=== PATIENT | female | born 1995 | race Caucasian/White ===

== ENCOUNTER 2017-04-30 13:49 | Emergency (ER) | payer MEDICAID, OTHER ==
[~2017-04-30] VITALS: Ht 152.4 cm; Wt 43.5 kg
[2017-04-30] MEDS ORDERED: NS IV 1000 ML 1,000 ML IV ONE (14:05)
[2017-04-30 14:14] LABS: BASOPHILS % (AUTO) 0 % (0-10); EOSINOPHILS # (AUTO) 0.1 10^3/uL (0.0-0.3); EOSINOPHILS % (AUTO) 1 % (0-10); LYMPHOCYTES # (AUTO) 2.9 X 10^3 (1.0-4.0); LYMPHOCYTES % (AUTO) 33 % (12-44); MEAN CORPUSCULAR HEMOGLOBIN 34 PG (25-34); MEAN CORPUSCULAR HGB CONC 35 G/DL (32-36); MEAN CORPUSCULAR VOLUME 97 FL (80-99); MEAN PLATELET VOLUME 10.9 FL (7.4-10.4); MONOCYTES # (AUTO) 0.6 X 10^3 (0.0-1.0); MONOCYTES % (AUTO) 7 % (0-12); NEUTROPHILS # (AUTO) 5.3 X 10^3 (1.8-7.8); NEUTROPHILS % (AUTO) 59 % (42-75); PLATELET COUNT 234 10^3/uL (130-400); RED BLOOD COUNT 4.42 10^6/uL (4.35-5.85)
[2017-04-30 14:26] LABS: ACETAMINOPHEN < 10 UG/ML (10-30); ALANINE AMINOTRANSFERASE 20 U/L (0-55); ALBUMIN 4.9 GM/DL (3.2-4.5); ANION GAP 12 MMOL/L (5-14); ASPARTATE AMINO TRANSFERASE 18 U/L (5-34); BILIRUBIN,TOTAL 2.8 MG/DL (0.1-1.0); BLOOD UREA NITROGEN 10 MG/DL (7-18); BUN/CREATININE RATIO 12; CALCIUM 9.6 MG/DL (8.5-10.1); CARBON DIOXIDE 25 MMOL/L (21-32); CHLORIDE 103 MMOL/L (98-107); CREATINE KINASE 85 U/L (29-168); CREATININE SERUM 0.81 MG/DL (0.60-1.30); GFR ESTIMATED > 60; GLUCOSE 95 MG/DL (70-105); MAGNESIUM 2.3 MG/DL (1.8-2.4); POTASSIUM 3.4 MMOL/L (3.6-5.0); SALICYLATE < 5.0 MG/DL (5.0-20.0); SODIUM 140 MMOL/L (135-145); TOTAL PROTEIN 7.5 GM/DL (6.4-8.2); hs C REACTIVE PROTEIN 0.02 MG/DL (0.00-0.50)
--- NOTE | 2017-04-30 14:32 | ED General ---
General Chief Complaint: General Problems/Pain Stated Complaint: SEIZURES Nursing Triage Note: PT PRESENTS TO ED FROM [facility], PT SHAKING UNCONTROLLABLY ALERT AND ORIENTED. PT APPEARS TO HAVE PERIODS OF UNRESPONSIVNESS BUT IMMEDIATELY RESPONDS TO VERBAL STIMULI. PT REPORTS SHE WAS SEEN AT [facility] FOR THE SAME SYMPTOMS AND TREATED FOR ANXIETY. Nursing Sepsis Screen: No Definite Risk Source of Information: Patient Exam Limitations: No Limitations History of Present Illness Time Seen by Provider: 13:58 Initial Comments Here by way of private vehicle with friends. They brought her here from [place] where she was apparently seen at [facility] ER. They left there and came here with same complaint of shaking and reporting that she is having a seizure. The shaking episodes apparently started last night and have been intermittently occurring since then and continue to intermittently occurring now. Patient is awake during this period but shaking everywhere. She reports she is is not happy because she was told at [facility] that she was having anxiety and that was what the problem was. Patient states she doesn't know what 's going on but does not believe it is that. She has not seen a neurologist for this. She reports that she's had tremors and those are getting worse. She has had workup for her GI problems including upper endoscopy and evaluation of her pancreas. She's had lower endoscopy to evaluate for her Crohn's but does report that is better now. Patient admits that she previously was prescribed Adderall and did take a half of bilateral on Saturday because she was very tired but hasn't taken any since. Timing/Duration: 4-6 Hours Severity: Moderate Associated Systoms: No Chest Pain, No Cough, No Fever/Chills, No Nausea/ Vomiting, Seizure (shaking episodes), No Shortness of Air Allergies and Home Medications Allergies Coded Allergies: codeine (Verified Allergy, Unknown, 04/30/17) Constitutional: see HPI, No chills, No fever Respiratory: no symptoms reported Cardiovascular: no symptoms reported, No chest pain, No edema Gastrointestinal: No abdominal pain, No nausea, No vomiting Musculoskeletal: see HPI Skin: no symptoms reported Psychiatric/Neurological: See HPI, Seizure, Tremors, Other (reports unintentional 40 pound weight loss over the last year) All Other Systems Reviewed Negative Unless Noted: Yes Past Ijtefzr-Jmwgen-Cahyxd Hx Patient Social History Alcohol Use: Occasionally Uses Recreational Drug Use: Yes Drug of Choice: MARIJUANA Smoking Status: Current Someday Smoker Type Used: Cigarettes Recent Foreign Travel: No Contact w/Someone Who Travel: No Recent Infectious Disease Expo: No Recent Hopitalizations: No Surgeries HX Surgeries: Yes Surgeries: Gallbladder, Orthopedic Respiratory Hx Respiratory Disorders: No Cardiovascular Hx Cardiac Disorders: No Neurological Hx Neurological Disorders: No Gastrointestinal Hx Gastrointestinal Disorders: Yes Gastrointestinal Disorders: Crohns Disease Psychosocial Hx Psychiatric Problems: Yes Behavioral Health Disorders: Anxiety Reviewed Nursing Assessment Reviewed/Agree w Nursing PMH: Yes Family Medical History Significant Family History: No Pertinent Family Hx Physical Exam Vital Signs Vital Sign - Last 12Hours 04/30/17 13:58 Temp 98.8 Pulse 73 Resp 18 B/P (MAP) 122/87 Pulse Ox 97 O2 Delivery Room Air Capillary Refill : Less Than 3 Seconds General Appearance: Anxious, Thin HEENT: TMs Normal, Pharynx Normal, Other (pinpoint pupils bilaterally) Neck: Full Range of Motion, Non Tender, Supple Respiratory: Chest Non Tender, Lungs Clear, Normal Breath Sounds Cardiovascular: Regular Rate, Rhythm, No Murmur Gastrointestinal: Non Tender, Soft Back: Normal Inspection, No CVA Tenderness, No Vertebral Tenderness Extremity: Normal Range of Motion, Non Tender Neurologic/Psychiatric: Alert, Oriented x3 Skin: Normal Color, Warm/Dry Progress/Results/Core Measures Results/Orders Lab Results Laboratory Tests Test 04/30/17 13:54 04/30/17 14:18 Range/Units White Blood Count 9.0 4.3-11.0 10^3/uL Red Blood Count 4.42 4.35-5.85 10^6/uL Hemoglobin 15.0 11.5-16.0 G/DL Hematocrit 43 35-52 % Mean Corpuscular Volume 97 80-99 FL Mean Corpuscular Hemoglobin 34 25-34 PG Mean Corpuscular Hemoglobin Concent 35 32-36 G/DL Red Cell Distribution Width 12.0 10.0-14.5 % Platelet Count 234 130-400 10^3/uL Mean Platelet Volume 10.9 H 7.4-10.4 FL Neutrophils (%) (Auto) 59 42-75 % Lymphocytes (%) (Auto) 33 12-44 % Monocytes (%) (Auto) 7 0-12 % Eosinophils (%) (Auto) 1 0-10 % Basophils (%) (Auto) 0 0-10 % Neutrophils # (Auto) 5.3 1.8-7.8 X 10^3 Lymphocytes # (Auto) 2.9 1.0-4.0 X 10^3 Monocytes # (Auto) 0.6 0.0-1.0 X 10^3 Eosinophils # (Auto) 0.1 0.0-0.3 10^3/uL Basophils # (Auto) 0.0 0.0-0.1 10^3/uL Sodium Level 140 135-145 MMOL/L Potassium Level 3.4 L 3.6-5.0 MMOL/L Chloride Level 103 98-107 MMOL/L Carbon Dioxide Level 25 21-32 MMOL/L Anion Gap 12 5-14 MMOL/L Blood Urea Nitrogen 10 7-18 MG/DL Creatinine 0.81 0.60-1.30 MG/DL Estimat Glomerular Filtration Rate > 60 BUN/Creatinine Ratio 12 Glucose Level 95 70-105 MG/DL Calcium Level 9.6 8.5-10.1 MG/DL Magnesium Level 2.3 1.8-2.4 MG/DL Total Bilirubin 2.8 H 0.1-1.0 MG/DL Aspartate Amino Transf (AST/SGOT) 18 5-34 U/L Alanine Aminotransferase (ALT/SGPT) 20 0-55 U/L Alkaline Phosphatase 85 40-136 U/L Total Creatine Kinase 85 29-168 U/L C-Reactive Protein High Sensitivity 0.02 0.00-0.50 MG/DL Total Protein 7.5 6.4-8.2 GM/DL Albumin 4.9 H 3.2-4.5 GM/DL Thyroid Stimulating Hormone (TSH) 0.78 0.35-4.94 UIU/ML Human Chorionic Gonadotropin, Quant < 5 <5 MIU/ML Salicylates Level < 5.0 L 5.0-20.0 MG/DL Acetaminophen Level < 10 L 10-30 UG/ML Urine Color YELLOW Urine Clarity CLEAR Urine pH 6.5 5-9 Urine Specific [place] 1.010 L 1.016-1.022 Urine Protein NEGATIVE NEGATIVE Urine Glucose (UA) NEGATIVE NEGATIVE Urine Ketones 2+ H NEGATIVE Urine Nitrite NEGATIVE NEGATIVE Urine Bilirubin NEGATIVE NEGATIVE Urine Urobilinogen NORMAL NORMAL MG/DL Urine Leukocyte Esterase NEGATIVE NEGATIVE Urine RBC (Auto) 3+ H NEGATIVE Urine RBC 2-5 H /HPF Urine WBC 2-5 /HPF Urine Squamous Epithelial Cells 10-25 H /HPF Urine Crystals NONE /LPF Urine Bacteria MODERATE H /HPF Urine Casts NONE /LPF Urine Mucus NEGATIVE /LPF Urine Culture Indicated NO Urine Opiates Screen POSITIVE H NEGATIVE Urine Oxycodone Screen NEGATIVE NEGATIVE Urine Methadone Screen NEGATIVE NEGATIVE Urine Propoxyphene Screen NEGATIVE NEGATIVE Urine Barbiturates Screen NEGATIVE NEGATIVE Ur Tricyclic Antidepressants Screen NEGATIVE NEGATIVE Urine Phencyclidine Screen NEGATIVE NEGATIVE Urine Amphetamines Screen NEGATIVE NEGATIVE Urine Methamphetamines Screen NEGATIVE NEGATIVE Urine Benzodiazepines Screen NEGATIVE NEGATIVE Urine Cocaine Screen NEGATIVE NEGATIVE Urine Cannabinoids Screen POSITIVE H NEGATIVE My Orders Orders - MANISH CANO MD Cbc With Automated Diff (04/30/17 14:05) Comprehensive Metabolic Panel (04/30/17 14:05) Creatine Kinase (04/30/17 14:05) Hs C Reactive Protein (04/30/17 14:05) Drug Screen Stat (Urine) (04/30/17 14:05) Hcg,Quantitative (04/30/17 14:05) Magnesium (04/30/17 14:05) Thyroid Stimulating Hormone (04/30/17 14:05) Ua Culture If Indicated (04/30/17 14:05) Ct Head Wo (04/30/17 14:05) Saline Lock/Iv-Start (04/30/17 14:05) Ns Iv 1000 Ml (Sodium Chloride 0.9%) (04/30/17 14:05) Acetaminophen (04/30/17 14:05) Salicylate (04/30/17 14:05) Medications Given in ED Current Medications Medications Dose Ordered Sig/Ulysses Route Start Time Stop Time Status Last Admin Dose Admin Sodium Chloride 1,000 ml @ 0 mls/hr Q0M ONCE IV 04/30/17 14:05 04/30/17 14:09 DC 04/30/17 14:30 1,000 MLS/HR Vital Signs/I&O Vital Sign - Last 12Hours 04/30/17 13:58 Temp 98.8 Pulse 73 Resp 18 B/P (MAP) 122/87 Pulse Ox 97 O2 Delivery Room Air Blood Pressure Mean: 99 Progress Note : Progress Note Seen and evaluated. IV, labs, UA, UDS, CT head ordered. We will attempt to get records from [facility]. Monitor patient. Patient has had a few episodes of shaking. She is able to talk right afterwards. Responses are appropriate. Monitor patient. I did have discussion with the patient and her mother showed up as well. This did not seem to help the patient's anxiety much although patient is doing better afterwards. Pending CT. MRI results from [facility] requested and obtained. This was discussed with the radiologist and compared to CT results. Labs were reviewed and compared with results done earlier. No significant findings or acute changes noted. 1535: I had a long discussion with the patient regarding requirements for further workup and evaluation. We also did frankly discussed anxiety and depression as potentially a cause of some of her symptoms. She is under a lot of stress related to family dynamics, she is mother of a 7-year-old and she is working and going to school. All of this can lead to exacerbations of both anxiety and depression and patient agrees. She will follow-up with her primary care provider and have a discussion related to this. Also suggested neurology follow -up as needed. Patient doing much better. Discharged home with return precautions. Patient verbalize understanding instructions and agreement with plan. Diagnostic Imaging Diagonstic Imaging: CT Plain Films/CT/US/NM/MRI: head Comments VIA [place], [place] NAME: SARINAGUY DOZIER [facility] REC#: [id number] PT STATUS: REG ER : 1995 PHYSICIAN: MANISH CANO MD ADMIT DATE: 04/30/17/ER Draft Date of Exam:04/30/17 CT HEAD WO PROCEDURE: CT head without contrast. TECHNIQUE: Multiple contiguous axial images were obtained through the brain without the use of intravenous contrast. INDICATION: Anxiety. FINDINGS: There are no prior studies available for comparison. There is no mass, shift of the midline, or hemorrhage to suggest an acute intracranial abnormality. Normal tentorial blush is noted. The ventricles are not abnormally dilated. The bone windows show no sign of a fracture or of a destructive lesion. The sinuses are generally clear. The orbits are symmetrical and within normal limits. IMPRESSION: 1. There is no evidence for an acute intracranial abnormality. 2. If clinical concern regarding an underlying abnormality persists, then MRI will be recommended for further study. 3. These results were discussed with Dr. Cano in the ER. Dictated on workstation # [id number] Dict: 04/30/17 1457 Trans: 04/30/17 1506 [id number] Interpreted by: KATE HERNANDEZ MD Electronically signed by: Reviewed: Reviewed/Discussed Departure Impression Impression: Primary Impression: Anxiety related tremor Additional Impression: Anxiety and depression Disposition: 01 HOME, SELF-CARE Condition: Improved Departure-Patient Inst. Decision time for Depature: 15:42 Referrals: NO,LOCAL PHYSICIAN (PCP/Family) Primary Care Physician Patient Instructions: Anxiety, Adult (DC), Depression, Adult (DC) Add. Discharge Instructions: All discharge instructions reviewed with patient and/or family. Voiced understanding. You will need to follow-up with your doctor for further referral to neurology for further evaluation as indicated. Please discuss with your doctor about anxiety and depression as a component of what is going on and and for possible prescription medication to help with these. Return for worse pain, fever, vomiting, weakness, breathing problems or other concerns as needed. Try to eat a normal diet and exercise as well. Drink plenty of fluids. MANISH CANO MD Apr 30, 2017 14:32
[2017-04-30 14:46] LABS: THYROID STIMULATING HORMONE 0.78 UIU/ML (0.35-4.94)
--- NOTE | 2017-04-30 15:06 | Diagnostic Imaging Report ---
PROCEDURE: CT head without contrast. TECHNIQUE: Multiple contiguous axial images were obtained through the brain without the use of intravenous contrast. INDICATION: Anxiety. FINDINGS: There are no prior studies available for comparison. The patient did undergo an MRI brain exam at [facility] on [facility]16[facility]. That study is not available for direct comparison but the report from that exam stated that there was no acute intracranial abnormality. There is no mass, shift of the midline, or hemorrhage to suggest an acute intracranial abnormality. Normal tentorial blush is noted. The ventricles are not abnormally dilated. The bone windows show no sign of a fracture or of a destructive lesion. The sinuses are generally clear. The orbits are symmetrical and within normal limits. IMPRESSION: 1. There is no evidence for an acute intracranial abnormality. 2. If clinical concern regarding an underlying abnormality persists, then a repeat MRI brain exam should be considered for further study. 3. These results were discussed with Dr. Cano in the ER. Dictated by: Dictated on workstation # [id number]
[2017-04-30 15:11] LABS: BILIRUBIN,URINE NEGATIVE (NEGATIVE); KETONES,URINE 2+ (NEGATIVE); LEUKOCYTE ESTERASE ,URINE NEGATIVE (NEGATIVE); NITRITE,URINE NEGATIVE (NEGATIVE); PH,URINE 6.5 (5-9); PROTEIN,URINE NEGATIVE (NEGATIVE); UROBILINOGEN,URINE NORMAL (NORMAL)
[2017-04-30 15:50] VITALS: BP 120/85
== END 2017-04-30 15:49 | disposition home or self-care (01) ==
LOC: ER 13:52
DX: G25.2 Other specified forms of tremor (principal); F41.9 Anxiety disorder, unspecified; F32.9 Major depressive disorder, single episode, unspecified; F12.10 Cannabis abuse, uncomplicated; F17.210 Nicotine dependence, cigarettes, uncomplicated; Z87.19 Personal history of other diseases of the digestive system
CPT/HCPCS: 36415; 70450; 80053; 80306; 80329; 81000; 82550; 83735; 84443; 84702; 85025; 86141; 96360